=== PATIENT | female | born 1995 | race Caucasian/White ===

== ENCOUNTER 2024-11-15 19:35 | Emergency (ER) | payer BC, SELFPAY ==
[2024-11-15 19:37] VITALS: BP 119/87
[2024-11-15 20:13] LABS: Hematocrit 42.3 % (37.0-47.0); Hemoglobin 14.7 g/dL (12.0-16.0); Mean Corp Hgb Conc. 34.8 g/dL (33.0-37.0); Mean Corpuscular Volume 88.1 fL (81.0-99.0); Nucleated Red Blood Cells % 0 %; Platelet Count 370 10^3/uL (130-400); Red Cell Dist. Width 12.1 % (11.5-14.5)
[2024-11-15 20:33] LABS: ALT (SGPT) 15 U/L (0-35); AST (SGOT) 21 U/L (14-36); Albumin 4.9 g/dl (3.5-5.0); Alkaline Phosphatase 70 U/L (38-126); Blood Urea Nitrogen 13 mg/dl (7-17); Calcium 9.4 mg/dl (8.4-10.2); Carbon Dioxide 28 mmol/L (22-30); Chloride 102 mmol/L (98-107); Glucose 98 mg/dl (70-99); Potassium 4.3 mmol/L (3.5-5.1); Sodium 137 mmol/L (135-145); Total Protein 8.2 g/dl (6.3-8.2); eGFR > 60.00
[2024-11-15 20:34] VITALS: BMI 26.7
[2024-11-15 20:49] LABS: Beta HCG Quantitative 58.53 mIU/ml
[2024-11-15 22:43] VITALS: BP 113/77
[2024-11-15 22:59] LABS: Urine Character Clear (Clear)
[2024-11-15 23:04] LABS: Urine Squamous Cell >30 /LPF (Few)
[2024-11-16 00:15] VITALS: BP 119/84
--- NOTE | 2024-11-16 00:30 | ED.GENMED ---
History of Present Illness
General
Chief Complaint: Problems
Source: patient
Exam Limitations: none
Time Seen by Provider: 11/15/24 20:19
Nursing documentation reviewed up to this point in time: agreed with
History of Present Illness
History of Present Illness:
Note:
CHIEF COMPLAINT(S)
Vaginal bleeding and cramping.
HISTORY OF PRESENT ILLNESS
The patient is a 29-year-old female with a pmh of anxiety, menorrhagia who presents with vaginal bleeding, brown discharge, cramping. She tested positive on a home test and estimates to be 6 weeks , and she has not yet seen her
OBGYN. She has been trying to get an appointment. Initially, she thought she was starting her menstrual period on the of this month. The bleeding was web content writer than her usual menstrual flow but heavier than what would typically be expected for
implantation bleeding. This bleeding persisted for three days until the . On the following Saturday, she noted very light spotting that has gradually become heavier over the past two weeks. She describes the bleeding as not substantial enough
to resemble a full period and has been accompanied by cramping. She expressed concern due to her previous history of extremely heavy menstrual periods. Current bleeding is present, noted primarily when wiping, and is described as between light and
medium. The patient rates her current pain as not severe but bothersome enough to seek care. She has experienced standard nausea, with an intermittent decrease in symptoms, and recently noted its return today, attributing anxiety to possible
worsening conditions. No vomiting or fever has been reported.
The patient reports her menstrual cycles are usually irregular with intervals varying, sometimes extending to 40 days, though usually falling between 30 to 31 days. She denies any history of endometriosis or polycystic ovary syndrome. The patient
has not undergone a pelvic ultrasound previously.
MEDICATIONS
The patient indicates taking vitamins daily. No other medications are reported.
REVIEW OF SYSTEMS
- Constitutional: No fever reported.
- Gastrointestinal: Nausea present without vomiting.
- Gynecological: Irregular menstrual cycles, heavier than normal menstrual bleeding, cramping.
- Ear, Nose, and Throat: Reports slight irritation on the back of the throat, no fever.
- Musculoskeletal: No specific pain, only pelvic discomfort.
- Skin: No changes reported.
PHYSICAL EXAM
- Nursing notes reviewed and vital signs reviewed.
General: Patient is well appearing and in no acute distress; non-toxic
Skin: Warm and dry, no rashes or lesions
Head: Normocephalic, atraumatic
Eyes: Sclera non-icteric. EOMs intact.
Cardiac: Regular rate and rhythm, no murmurs
Pulm: Normal respiratory effort, no wheezes, rales, or rhonchi
Abdomen: No abdominal tenderness to palpation, no adnexal tenderness, no palpable abdominal masses
Neuro: CN II-XII intact, no focal neurologic deficits.
Psychiatric: Appropriate mood and affect.
PLAN
- Initiate blood work including a complete blood count (CBC) and CMP, beta-quantitative test.
- Schedule an ultrasound
- Confirm if additional blood work such as blood typing and screen or possible administration of Rh immunoglobulin is necessary.
- Contact the laboratory to verify pending tests and any additions required for comprehensive evaluation.
DIFFERENTIAL DIAGNOSIS
The Differential Diagnosis includes, in no particular order and is not limited to:
1. complications (e.g., ectopic , threatened miscarriage)
2. Uterine fibroids
3. Hormonal imbalances
4. Endometrial disorders
5. Cervical polyps or lesions
6. Pelvic inflammatory disease
7. Coagulation disorders
8. Ovarian cysts
9. Thyroid disorders
10. Stress-related menstrual irregularities
CHART REVIEW
Reviewed ER documentation from 04/24/19
MDM/DISPOSITION
The patient is a 29-year-old female with a pmh of anxiety, menorrhagia who presents with vaginal bleeding, brown discharge, cramping. She tested positive on a home test and estimates to be 6 weeks , and she has not yet seen her
OBGYN. She has been trying to get an appointment. At this time, she is comfortable and notes that her bleeding has mostly resolved. She has not had any fevers or chills. On physical exam, she is well appearing, her abdomen is soft and non-tender.
CMP CBC unremarkable, beta hcg 58, and she is A positive no indication for Rhogam at this time. Ultrasound shows unremarkable endometrium. No intrauterine gestational sac. The ovaries are within normal limits. No sonographically demonstrable right
or left adnexal mass or collection is appreciated. This is consistent with miscarriage/early loss as it has been 6 weeks after the last menstrual period. I stressed importance of follow up with OBGYN for repeat blood work and imaging,
discussed strict return precautions.
Past History
Past History
ED Past Medical History: None
ED Past Surgical History: None
Social History
Tobacco: Non-smoker
Alcohol: None
Drug: None
Personal: Single
Living: with family
Employment: Employed
Family History
Family History: Other (Noncontributory)
Phy Exam
Physical Exam
Physical Exam:
see hpi
Course
Orders/Labs/Results
Orders:
Orders
11/15/24 19:59
Complete Blood Count/With Diff Urgent
Comprehensive Metabolic Panel Urgent
HCG,SERUM [Beta HCG Quantitative] Urgent
Is this a screen?: No
Comment: 6 weeks with spotting
11/15/24 20:19
US W Transvaginal Urgent
Reason For Exam: spotting
11/15/24 22:40
Type+Screen Urgent
Urinalysis Reflex To Culture Urgent
Date Specimen was Collected: 11/15/24
Time Specimen was Collected: 22:31
Urine Microscopic Reflex Cult Urgent
11/15/24 23:10
ABO2 Urgent
BBK Wristband Number:
Associate notified that ABO2 has been ordered: [id number]
Date: 11/15/24
Time: 22:57
Order Tracer ID: [id number]
Abnormal Lab Results
11/15/24 11/15/24
19:59 22:40
Absolute Neuts (auto) 7.2 H 10^3/uL
(1.4-6.5)
Absolute Monos (auto) 0.8 H 10^3/uL
(0.1-0.6)
Lymphocytes % 18.9 L %
(20.5-51.1)
Ur Occult Blood Reflex 4+ A
(Negative)
Urine RBC 7-10 A /HPF
(0-2)
Urine Bacteria (Reflex) Few A
(Negative)
11/15/24 19:59
11/15/24 19:59
Vital Signs
Initial and Last Documented VS:
Initial Vital Signs
Pulse Resp BP Pulse Ox
91 16 119/87 100
11/15/24 19:37 11/15/24 19:37 11/15/24 19:37 11/15/24 19:37
Last Documented Vital Signs
Pulse Resp BP Pulse Ox
83 16 119/84 98
11/16/24 00:15 11/16/24 00:15 11/16/24 00:15 11/16/24 00:30
Information
Weeks gestation: N/A
Location: N/A
*Pulse Oximetry
SaO2: 98
Oxygen Mode of Delivery: Room air
Patient hypoxic: no
*Critical Care Note
Total Time (30-74mins, 75-104mins- exclusive of procedures): Not Applicable
ED Attending Note
-
Portions of this chart may have been created with voice recognition software.� Occasional wrong word or��sound alike� substitutions may have occurred due to the inherent limitations of voice recognition software.
Discharge Plan
Departure
Patient Disposition: Home (Routine Discharge)
Date of Disposition: 11/15/24
Time of Disposition: 23:58
Patient with high blood pressure during this ER visit?: No
Condition: Good
Discharge Problem:
Spontaneous miscarriage
Instructions: Miscarriage (DC), BLOOD PRESSURE
Prescriptions:
No Action
albuterol sulfate [Proventil HFA] 90 MCG/PUFF HFA aerosol inhaler
1 puff inhalation Q4HPRN PRN (Reason: shortness of breath) Qty: 1 0RF
1 mg Tablet
1 tab PO DAILY
Referrals:
Sasha Lilly PA-C [Family Provider]
Activity Restrictions/Additional Instructions:
Please call your [employer] tomorrow morning to schedule follow-up appointment.
Your beta hCG level today was 58.53.
PLEASE RETURN TO THE ER SHOULD YOU DEVELOP INCREASED IN AMOUNT OF BLEEDING, INCREASING PAIN, FEVERS OR CHILLS, LIGHTHEADEDNESS, DIZZINESS, FAINTING SPELLS, OR ANY OTHER SIGNS OR SYMPTOMS WORRISOME TO YOU.
Interventions
Interventions:
*Risk Screen - Suicide Last Done: 11/15/24 19:37
*General Assessment Last Done: 11/15/24 20:28
*Neglect/Abuse Screening Last Done: 11/15/24 19:37
*ED- Fall Risk Assessment Last Done: 11/15/24 20:28
*ED COVID-19 Vaccine History Last Done: 11/15/24 20:28
*Nursing Disposition Last Done: 11/16/24 00:15
ED-Female Genitourinary Assessment Last Done: 11/15/24 20:28
Discharge Date and Time
Discharge Date/Time: 11/16/24 00:15
Print Language: [id number]
== END 2024-11-16 00:15 | disposition home or self-care (01) ==
LOC: EMR 19:35
PROVIDERS: Emergency Medicine; Physician Assistant; EMERGENCY PHYSICIAN Emergency Medicine; FAMILY PHYSICIAN Physician Assistant Medical
DX: O03.9 Complete or unspecified spontaneous abortion without complication (principal)
CPT/HCPCS: 99284; 76801; 76817; 80053; 81003; 81015; 84702; 85025; 86850; 86900; 86901